=== PATIENT | male | born 1935 | race Caucasian/White ===

== ENCOUNTER 2022-10-03 17:39 | Inpatient (IN) ==
[2022-10-03 19:13] LABS: ABS Lymphocytes 0.9 10^3/uL (1.0-4.8); ABS Monocytes 1.5 10^3/uL (0.0-1.1); ABS Neutrophils 11.9 10^3/uL (1.5-7.6); ABS Nucleated RBC 0.01 10^3/ul; Hematocrit 38.8 % (38-53); Lymphocyte % 6.6 %; Mean Corpuscular Hgb Conc 33.6 g/dL (31-36); Mean Corpuscular Volume 92.1 fL (80-97); Mean Platelet Volume 8.5 fL (7.5-11.2); Platelet Count 237 10^3/uL (150-450); Red Blood Count 4.21 10^6/uL (4.06-5.63); Red Cell Distribution Width 14.1 % (12-17); White Blood Count 14.3 10^3/uL (3.6-10.2)
[2022-10-03 20:00] LABS: Albumin 3.7 g/dL (3.2-5.2); Albumin/Globulin Ratio 1.2 (1-3); C Reactive Protein 154.43 mg/L (<8.01); Creatinine, Serum 1.27 mg/dL (0.67-1.17); Globulin 3.2 g/dL (2-4); Magnesium 1.7 mg/dL (1.9-2.7); Potassium 4.3 mmol/L (3.5-5.0); Total Bilirubin 0.7 mg/dL (0.2-1.0); Total Protein 6.9 g/dL (6.4-8.9); eGFR CKD-EPI 55.4 (>60)
[2022-10-03] MEDS ORDERED: Magnesium Sulfate 2 gm BAG 2 GM/50 ML BAG IVPB ONE ×2 (20:07→22:09)
[2022-10-03 20:14] LABS: Urine Appearance Turbid; Urine Bilirubin Negative (Negative); Urine Blood 1+ (Negative); Urine Color Yellow; Urine Glucose Negative (Negative); Urine Ketones Negative (Negative); Urine Nitrite Negative (Negative); Urine Protein 2+(100 mg/dL) (Negative); Urine Specific Gravity 1.011 (1.002-1.030); Urine Urobilinogen Negative (Negative)
[2022-10-03] MEDS ORDERED: cefTRIAXone 1 gm/50 mL D5W 1 GM/50 ML BAG IV ONE (20:15)
[2022-10-03 20:31] LABS: Urine Bacteria 2+ (Absent); Urine Red Blood Cell 3+(>10/hpf) (Absent); Urine Squamous Epithelial Cell Present (Absent); Urine White Blood Cell 3+(>20/hpf) (Absent)
[2022-10-03 21:35] LABS: High Sensitivity Troponin 1 Hr 77 pg/mL (<20)
[2022-10-03] MEDS ORDERED: Magnesium Chloride EC 64 mgTAB PO ONE (21:59)
[2022-10-04] MEDS ORDERED: Azithromycin 500 mg/250 ml NS 500 MG/250 ML BAG IVPB SCH (01:00)
[2022-10-04 05:06] LABS: Urine Appearance Turbid; Urine Bilirubin Negative (Negative); Urine Blood 3+ (Negative); Urine Color Yellow; Urine Glucose Negative (Negative); Urine Ketones Negative (Negative); Urine Nitrite Negative (Negative); Urine Protein 2+(100 mg/dL) (Negative); Urine Urobilinogen Negative (Negative)
[2022-10-04 05:10] LABS: Urine Amorphous Crystals Present (Absent); Urine Bacteria 1+ (Absent); Urine Red Blood Cell 3+(>10/hpf) (Absent); Urine White Blood Cell 3+(>20/hpf) (Absent); Urine Yeast Present (Absent)
[2022-10-04] MEDS ORDERED: Lactated Ringers 1000 ml BAG 1,000 ML IV SCH (06:00)
[2022-10-04] MEDS: Furosemide 20 mg/2 ml IV VIAL IV SLOW PU SCH ×2 (06:31→12:34)
[2022-10-04 06:50] LABS: ABS Lymphocytes 0.8 10^3/uL (1.0-4.8); ABS Monocytes 1.2 10^3/uL (0.0-1.1); ABS Neutrophils 8.4 10^3/uL (1.5-7.6); Eosinophil % 0.1 %; Hematocrit 40.4 % (38-53); Hemoglobin 13.7 g/dL (13.2-16.3); Mean Corpuscular Hemoglobin 31.4 pg (27-33); Mean Corpuscular Hgb Conc 33.9 g/dL (31-36); Mean Corpuscular Volume 92.6 fL (80-97); Mean Platelet Volume 8.7 fL (7.5-11.2); Platelet Count 297 10^3/uL (150-450); Red Blood Count 4.36 10^6/uL (4.06-5.63); Red Cell Distribution Width 13.9 % (12-17); White Blood Count 10.5 10^3/uL (3.6-10.2)
[2022-10-04 07:18] LABS: Albumin 3.5 g/dL (3.2-5.2); Albumin/Globulin Ratio 1.1 (1-3); Calcium 8.4 mg/dL (8.6-10.3); Creatinine, Serum 1.4 mg/dL (0.67-1.17); Globulin 3.3 g/dL (2-4); Magnesium 2.1 mg/dL (1.9-2.7); Potassium 4.4 mmol/L (3.5-5.0); Total Bilirubin 0.5 mg/dL (0.2-1.0); Total Protein 6.8 g/dL (6.4-8.9); eGFR CKD-EPI 49.3 (>60)
[2022-10-04 07:46] LABS: Folate > 20.00 ng/mL (5.90-24.80); Vitamin B12 1069 pg/mL (180-914)
[2022-10-04] MEDS: Polyethylene Glycol 3350 17 GM PACKET PO SCH (10:14)
[2022-10-04] MEDS ORDERED: cefTRIAXone 1 gm/50 mL D5W 1 GM/50 ML BAG IV SCH ×2 (20:30→21:00)
[2022-10-04] MEDS ORDERED: Senna TAB 8.6 mg TAB PO SCH (21:00)
[2022-10-04 21:57] LABS: Urine Osmo 321 mOsm/kg (150-1150)
[2022-10-05] MEDS ORDERED: Azithromycin 500 mg/250 ml NS 500 MG/250 ML BAG IVPB SCH (03:00)
[2022-10-05] MEDS: Furosemide 20 mg/2 ml IV VIAL IV SLOW PU SCH ×2 (05:56→11:15)
[2022-10-05 06:03] LABS: Hematocrit 36.9 % (38-53); Hemoglobin 12.5 g/dL (13.2-16.3); Mean Corpuscular Hemoglobin 30.8 pg (27-33); Mean Corpuscular Volume 90.7 fL (80-97); Mean Platelet Volume 9.5 fL (7.5-11.2); Platelet Count 231 10^3/uL (150-450); Red Blood Count 4.06 10^6/uL (4.06-5.63); Red Cell Distribution Width 13.7 % (12-17); White Blood Count 12.2 10^3/uL (3.6-10.2)
[2022-10-05 06:19] LABS: Calcium 8.2 mg/dL (8.6-10.3); Creatinine, Serum 1.31 mg/dL (0.67-1.17); eGFR CKD-EPI 53.3 (>60)
[2022-10-05 07:17] LABS: ABS Eosinophils 0.1 10^3/uL (0.0-0.5); ABS Lymphocytes 1.2 10^3/uL (1.0-4.8); ABS Monocytes 1.7 10^3/uL (0.0-1.1); ABS Neutrophils 9.3 10^3/uL (1.5-7.6); ABS Nucleated RBC 0.01 10^3/ul; Eosinophil % 0.4 %; Lymphocyte % 9.9 %; Nucleated Red Blood Cells % 0.1 /100 WBC (0.0-0.4)
[2022-10-05] MEDS: Polyethylene Glycol 3350 17 GM PACKET PO SCH (10:12)
[2022-10-05 10:41] VITALS: BP 110/60
[2022-10-05 16:22] LABS: PSA Free 0.5 ng/mL; PSA Free/Total 0.08 ratio; PSA Total 6.3 ng/mL (<=7.2)
== END 2022-10-05 15:00 | disposition home or self-care (01) | DRG 872 ==
LOC: ED 17:39 → SUATTDRO 22:39 → EDHOLD 22:39 → MEDTELE 10-04 03:08
PROVIDERS: ADMIT Internal Medicine; ATTEND Internal Medicine